=== PATIENT | male | born 1950 | race Caucasian/White ===

== ENCOUNTER 2018-07-14 07:08 | Inpatient (IN) | payer OTHER, MEDICARE ==
[~2018-07-14] VITALS: Ht 182.9 cm; Wt 124.2 kg
[2018-07-14] VITALS (11 sets, daily range): BP systolic 103–121; BP diastolic 57–88; PULSE 51–64; TEMP 97.8–98.3
[~2018-07-14 07:08] MED LIST: ASPIRIN 81M81 MG/TA2 PO; CLARITIN 1010 MG/TAB PO; COZAAR 25MG25 MG/TAB PO; GLUCOSAMINE & C1 CA1 PO; GLUCOSAMINE/MSM1 TAB PO; HCTZ 25MG TAB25 MG PO; LUTEIN 15 MG-0.1 SGL PO; NORCO 325 MG-51 TAB PO; PROAIR HFA0.09 MG/AC IH; TOPROL XL 50MG50 MG PO; VITAMIN B121000 MCG PO; ZYRTEC 10MG10 MG PO
[2018-07-14 07:46] LABS: HEMATOCRIT 46.9 % (42.0-52.0); HEMOGLOBIN 15.9 g/dl (13.5-18.0); MEAN CELL VOLUME 89 fl (80.0-100.0); MEAN CORPUSCULAR HEMOGLOBIN 30 pg (27.0-31.0); MEAN CORPUSCULAR HGB CONC 34 g/dl (33.0-37.0); MEAN PLATELET VOLUME 10.8 fl (7.4-10.4); PLATELET COUNT 211 K/mm3 (130-400); REDCELL DISTRIBUTION WIDTH-CV 12.2 % (11.5-14.5)
[2018-07-14 07:50] LABS: INR 1.1 (0.8-3.0); PROTHROMBIN TIME 12.9 SECONDS (9.7-12.8)
[2018-07-14 07:57] LABS: CALCIUM 9.4 mg/dL (8.4-10.2); CREATININE, serum 0.74 (0.66-1.25); POTASSIUM 3.9 mmol/L (3.4-5.0)
[2018-07-14] MEDS ORDERED: CLARITIN 1010 MG/TAB PO (09:22)
[2018-07-14] MEDS ORDERED: B-121000 MCG PO (09:24)
--- NOTE | 2018-07-14 09:29 | NUR ---
SEE MERGE REPORT FOR MEDICATION ADMINISTRATION AND INTRA/POST OP SEDATION ASSESSMENTS.
--- NOTE | 2018-07-14 13:15 | NUR ---
Pt arrived to room 352 at this time. He is drowsy but arouses to voice. Pt denies any pain. Site to R groin and L upper chest CDI. POC for bedrest discussed with patient who verbalizes understanding. LUE in sling. Good pulses to BUE and BLE. No needs at this time. Call light within reach.
--- NOTE | 2018-07-14 18:24 | NUR ---
Pt ambulated to the restroom for first time since bedrest is over. Ambulated well, sites CDI. Pt denies pain. Call light within reach.
--- NOTE | 2018-07-14 18:56 | NUR ---
Pt denied pain through the day. L chest and R femoral sites remained CDI. VSS. POC discussed with patient who verbalizes understanding. Call light within reach. Will continue to monitor.
--- NOTE | 2018-07-14 20:10 | NUR ---
Shift assessment complete. Pt resting in bed, awake, a&o, friendly et cooperative c cares. Pt reports "a little soreness" to L upper chest. Incision noted to L upper chest, pacemaker site, moderate ecchymosis, no drainage/edema; gauze/foam tape dressing C/D/I. LUE in sling; ice pack in place. Incision also noted to R groin, heart cath site, no drainage/edema; gauze/tegaderm dressing C/D/I. Tele in place. INT patent. Pt s further needs. Call light in reach, will continue to monitor.
[2018-07-15] VITALS (7 sets, daily range): BP systolic 104–119; BP diastolic 52–66; PULSE 59–64; TEMP 97.9–98.6
[2018-07-15 07:25] LABS: BASO % 0.3 % (0.0-2.0); EOS # 0.2 (0.0-0.7); EOS % 1.5 % (0-4.0); GRAN # 9.2 (1.4-6.5); HEMATOCRIT 42.5 % (42.0-52.0); HEMOGLOBIN 14.3 g/dl (13.5-18.0); LYMPH # 1.5 (1.2-3.4); LYMPH % 12.2 % (20.0-51.0); MEAN CELL VOLUME 90 fl (80.0-100.0); MEAN CORPUSCULAR HEMOGLOBIN 30 pg (27.0-31.0); MEAN CORPUSCULAR HGB CONC 34 g/dl (33.0-37.0); MEAN PLATELET VOLUME 11.1 fl (7.4-10.4); MONO # 1.2 (0.1-0.6); MONO % 9.7 % (1.7-9.3); PLATELET COUNT 188 K/mm3 (130-400); RED BLOOD COUNT 4.75 M/mm3 (4.20-5.60); REDCELL DISTRIBUTION WIDTH-CV 12.4 % (11.5-14.5)
[2018-07-15 07:32] LABS: INR 1.3 (0.8-3.0); PROTHROMBIN TIME 14.7 SECONDS (9.7-12.8)
[2018-07-15 07:42] LABS: CREATININE, serum 0.7 (0.66-1.25); MAGNESIUM 2.1 mg/dL (1.6-2.3)
[2018-07-15 08:06] LABS: THYROID STIMULATING HORMONE 0.624 uIU/mL (0.465-4.680)
--- NOTE | 2018-07-15 09:15 | NUR ---
Patient down for CT at this time
--- NOTE | 2018-07-15 09:35 | NUR ---
Patient back from CT escorted via wheelchair
--- NOTE | 2018-07-15 10:15 | NUR ---
Patient assessment complete. Patient sitting in bed, son at bedside. No SOB, dizziness, palpitations "not sure I would notice, I didn't notice before", stated patient. Denies pain, "just sore on left side". Pulses are strong bilaterally, no edema noted. Bowel sounds X4 present. Lung sounds clear throughout. Heart sounds normal. Left chest pacemaker site is CDI, dressing removed, sutures intact, no bleeding. Left arm in sling. Right groin site, dressing CDI. Call light within reach.
--- NOTE | 2018-07-15 10:41 | NUR ---
First visit from the catalyst operator chief. prayed with patient. No other needs right now.
--- NOTE | 2018-07-15 13:57 | NUR ---
SW student met with the patient to discuss discharge planning. The patient lives in [place] with his , Deandra. The patient reports independence with ADLs and has no DME but has a C-pap that he obtained from [facility]. The patients PCP is Dr. Jose Matute and he gets his medications from [facility]. The patient reports no difficulties obtaining his medications. The patient does have a DPOA-HC completed and a copy is in his chart. The patient plans to return home with family support upon discharge. No additional needs at this time.
--- NOTE | 2018-07-15 20:04 | NUR ---
Pt resting in bed watching TV, surgical sites CDI, shift assessments complete, left Pt call light in reach, bed in lowest position.
[2018-07-16 03:36] VITALS: BP 115/72; PULSE 65; TEMP 97.9
--- NOTE | 2018-07-16 04:42 | NUR ---
Pt slept well during the night, no C/O pain during, VS have remained stable, pacemaker surgical site remains well approximated without any drainage redness.
[2018-07-16 06:36] LABS: INR 1.3 (0.8-3.0)
[2018-07-16 06:48] LABS: CALCIUM 8.7 mg/dL (8.4-10.2); CREATININE, serum 0.79 (0.66-1.25); MAGNESIUM 2.1 mg/dL (1.6-2.3); POTASSIUM 3.8 mmol/L (3.4-5.0)
[2018-07-16 06:51] LABS: BASO % 0.4 % (0.0-2.0); EOS # 0.3 (0.0-0.7); EOS % 2.4 % (0-4.0); GRAN % 72.7 % (42.2-75.2); HEMATOCRIT 40.1 % (42.0-52.0); HEMOGLOBIN 13.5 g/dl (13.5-18.0); LYMPH # 1.4 (1.2-3.4); LYMPH % 12.9 % (20.0-51.0); MEAN CELL VOLUME 90 fl (80.0-100.0); MEAN CORPUSCULAR HEMOGLOBIN 30 pg (27.0-31.0); MEAN CORPUSCULAR HGB CONC 34 g/dl (33.0-37.0); MEAN PLATELET VOLUME 11.6 fl (7.4-10.4); MONO # 1.2 (0.1-0.6); MONO % 11.1 % (1.7-9.3); PLATELET COUNT 168 K/mm3 (130-400); RED BLOOD COUNT 4.47 M/mm3 (4.20-5.60); REDCELL DISTRIBUTION WIDTH-CV 12.5 % (11.5-14.5)
--- NOTE | 2018-07-16 07:15 | NUR ---
Report received from MELVIN Hannah. PT resting in bed with CPAP on, denies needs, will continue to monitor.
[2018-07-16 07:20] VITALS: BP 118/76; PULSE 59; TEMP 98.3
--- NOTE | 2018-07-16 08:00 | NUR ---
Assessment complete. incision L upper chest CDI.incision R groin CDI. INT L AC CDI. No c/o pain. Telemetry on.call light in hand.
[2018-07-16] MEDS ORDERED: BETAPACE 80MG80 MG PO (09:54)
[2018-07-16] MEDS ORDERED: COUMADIN 5MG5 MG/TAB PO (09:54)
[2018-07-16] MEDS ORDERED: CEPHALEXIN500 M1 PO (09:55)
[2018-07-16 10:40] VITALS: BP 115/60; PULSE 60; TEMP 98.3
--- NOTE | 2018-07-16 13:20 | NUR ---
Discharge teaching completed at this time. Discharged pt home, discharge packet reviewed including new scripts, f/u appointments. INT d/c'd, tip intact. Answered all questions. Pt escorted out by myself, left with all belongings, family to drive home, criteria met.
== END 2018-07-16 13:15 | disposition home or self-care (01) | DRG 244 ==
LOC: COL.CAR 07:08 → MEDICAL 13:18 → COL.CAR 13:20 → MEDICAL 13:21
PROVIDERS: ADMIT Internal Medicine Cardiovascular Disease
PROC: 0JH606Z Insertion of Pacemaker, Dual Chamber into Chest Subcutaneous Tissue and Fascia, Open Approach (ICD-10-PCS; principal; 2018-07-14)
PROC: 02H70JZ Insertion of Pacemaker Lead into Left Atrium, Open Approach (ICD-10-PCS; 2018-07-14)
PROC: 02H63JZ Insertion of Pacemaker Lead into Right Atrium, Percutaneous Approach (ICD-10-PCS; 2018-07-14)
PROC: 02HK3JZ Insertion of Pacemaker Lead into Right Ventricle, Percutaneous Approach (ICD-10-PCS; 2018-07-14)
PROC: B2111ZZ Fluoroscopy of Multiple Coronary Arteries using Low Osmolar Contrast (ICD-10-PCS; 2018-07-14)
PROC: B2151ZZ Fluoroscopy of Left Heart using Low Osmolar Contrast (ICD-10-PCS; 2018-07-14)
PROC: 4A023N8 Measurement of Cardiac Sampling and Pressure, Bilateral, Percutaneous Approach (ICD-10-PCS; 2018-07-14)
DX: I48.0 Paroxysmal atrial fibrillation (principal); I49.5 Sick sinus syndrome; I10 Essential (primary) hypertension; I35.0 Nonrheumatic aortic (valve) stenosis; J45.909 Unspecified asthma, uncomplicated; I44.0 Atrioventricular block, first degree; I44.7 Left bundle-branch block, unspecified
CPT/HCPCS: C1760; C1769; C1894; C1898; C1900; C2621; J0690; J1200; J1644; J2250; J3010; Q9967

== ENCOUNTER 2018-08-12 10:12 | Inpatient (IN) | payer OTHER, MEDICARE ==
[~2018-08-12] VITALS: Ht 180.3 cm; Wt 115.8 kg
[~2018-08-12 10:12] MED LIST changes: +B-121000 MCG PO; +BETAPACE 80MG80 MG PO; +CEPHALEXIN500 M1 PO; +COUMADIN 5MG5 MG/TAB PO
[2018-08-12 10:52] LABS: BASO # 0.1 (0.0-0.2); BASO % 0.6 % (0.0-2.0); EOS # 0.3 (0.0-0.7); EOS % 2.7 % (0-4.0); GRAN # 7.6 (1.4-6.5); GRAN % 77.9 % (42.2-75.2); HEMATOCRIT 47.5 % (42.0-52.0); HEMOGLOBIN 15.9 g/dl (13.5-18.0); LYMPH # 1.1 (1.2-3.4); LYMPH % 11.2 % (20.0-51.0); MEAN CELL VOLUME 89 fl (80.0-100.0); MEAN CORPUSCULAR HEMOGLOBIN 30 pg (27.0-31.0); MEAN CORPUSCULAR HGB CONC 34 g/dl (33.0-37.0); MEAN PLATELET VOLUME 10.8 fl (7.4-10.4); MONO # 0.7 (0.1-0.6); MONO % 7.4 % (1.7-9.3); PLATELET COUNT 210 K/mm3 (130-400); RED BLOOD COUNT 5.36 M/mm3 (4.20-5.60); REDCELL DISTRIBUTION WIDTH-CV 12.7 % (11.5-14.5)
[2018-08-12 11:13] LABS: ALANINE AMINOTRANSFERASE < 6 U/L (21-72); ALBUMIN 3.9 gm/dL (3.5-5.0); ALKALINE PHOSPHATASE 74 U/L (50-136); ANION GAP 12 mmol/L (7-16); AST,SGOT 29 U/L (15-37); BILIRUBIN,TOTAL 0.7 mg/dL (0.0-1.0); BLOOD UREA NITROGEN 21 mg/dL (9-20); CALCIUM 9.5 mg/dL (8.4-10.2); CARBON DIOXIDE 26 mmol/L (22-30); CHLORIDE 102 mmol/L (98-107); GLUCOSE 128 mg/dL (74-106); LIPASE 58 U/L (23-300); POTASSIUM 4.4 mmol/L (3.4-5.0); SODIUM 139 mmol/L (137-145); TOTAL PROTEIN 7.4 gm/dL (6.4-8.2)
[2018-08-12 11:23] LABS: TROPONIN-I < 0.012 ng/mL (0.000-0.035)
--- NOTE | 2018-08-12 15:30 | NUR ---
Patient up to room with at bedside. Patient ambulating on own. Assessment complete. Expiratory wheezes throughout, denies SOB. Denies current chest pain, palpitations, sweatiness. VSS, labs ok. Radial and pedal pulses strong bilaterally. Patient here a month ago for pacemaker placement. Site is [facility]. Patient on room air. IV in LAC, fluids running, no complications. Skin intact. No other needs at this time. Call light within reach.
[2018-08-12 16:16] VITALS: BP 111/66; PULSE 54; TEMP 97.9
[2018-08-12 16:18] LABS: INR 3.2 (0.8-3.0); PROTHROMBIN TIME 35.9 SECONDS (9.7-12.8)
--- NOTE | 2018-08-12 19:09 | NUR ---
Report given to MELVIN Cui.
[2018-08-12 19:44] VITALS: BP 120/61; PULSE 58; TEMP 98.7
--- NOTE | 2018-08-12 23:00 | NUR ---
PT HAD ASKED THIS NURSE IF HE WAS STILL GETTING THE TORADOL FOR CHEST DISCOMFORT THAT HE HAD GOTTEN IN THE ED. THIS NURSE TOLD HIM IT LOOKED LIKE A ONE TIME DOSE. THIS NURSE INFOMRED HIM THAT IT WAS NO LONGER IN HIS MED LIST BUT I COULD CALL AND ASK FOR MED ORDER IF HE WAS HAVING MORE PAIN. PT STATED THAT HIS PAIN HAD BEEN STILL REMAINING FROM EARLIER THAT HE MAINLY JUST WONDERING IF IT WAS A CONTINUED MED. THIS NURSE TOLD PT TO RING IF HIS PAIN GETS WORSE AND I CAN GET AN ORDER IF HE NEEDS SOMETHING MORE FOR PAIN. PT STATED THAT HE WOULD
[2018-08-12 23:53] VITALS: BP 111/72; PULSE 70; TEMP 98.3
[2018-08-13] VITALS (7 sets, daily range): BP systolic 94–129; BP diastolic 50–79; PULSE 58–88; TEMP 98–98.7
--- NOTE | 2018-08-13 | NUR ---
PT STATED HE WAS HAVING SOME ANXIOUSNESS THIS NOC ABOUT UP COMING PROCEDURE.
--- NOTE | 2018-08-13 06:04 | NUR ---
PT STATED THAT HE WAS ABLE TO GET SOME SLEEP AT ABOUT 3 THIS MORNING. STATED THAT HE HAD THAT CHEST IRRITATION FOR AWHILE IN THE NIGHT, IT FINALLY SUBSIDED AND HE WAS ABLE TO GET SOME REST.
[2018-08-13 07:18] LABS: BASO % 0.2 % (0.0-2.0); EOS % 0.1 % (0-4.0); GRAN # 11.4 (1.4-6.5); GRAN % 82.2 % (42.2-75.2); HEMATOCRIT 43.2 % (42.0-52.0); HEMOGLOBIN 14.3 g/dl (13.5-18.0); LYMPH # 1.1 (1.2-3.4); LYMPH % 7.9 % (20.0-51.0); MEAN CELL VOLUME 91 fl (80.0-100.0); MEAN CORPUSCULAR HEMOGLOBIN 30 pg (27.0-31.0); MEAN CORPUSCULAR HGB CONC 33 g/dl (33.0-37.0); MEAN PLATELET VOLUME 11.3 fl (7.4-10.4); MONO # 1.3 (0.1-0.6); MONO % 9.2 % (1.7-9.3); PLATELET COUNT 204 K/mm3 (130-400); RED BLOOD COUNT 4.76 M/mm3 (4.20-5.60); REDCELL DISTRIBUTION WIDTH-CV 12.9 % (11.5-14.5)
[2018-08-13 07:26] LABS: INR 2.9 (0.8-3.0); PROTHROMBIN TIME 32.9 SECONDS (9.7-12.8)
[2018-08-13 07:31] LABS: CREATININE, serum 0.8 (0.66-1.25); POTASSIUM 4.3 mmol/L (3.4-5.0)
--- NOTE | 2018-08-13 11:01 | NUR ---
Assessment completed, alert/oriented, vital sigs stable, reports mild tenderness/ sore in chest, heart RRR/ SR on tele, lungs CTA/ no resp.difficulty noted, patient has been NPO, he is scheduled for Atrial pacemaker lead revision later today, consent signed, patient denies othr needs at this time
--- NOTE | 2018-08-13 16:55 | NUR ---
SW attempted to meet with the patient. The patient was down in a procedure. SW to follow up with the patient tomorrow, 08/14.
--- NOTE | 2018-08-13 17:00 | NUR ---
ALL MEDICATIONS GIVEN VORB WITH MD. SEE MERGE FOR ALL MEDICATION ADMIN TIMES. SEE MERGE FOR ALL RASS ASSESSMENTS DURING AND POST PROCEDURE. ANTIBIOTICS GIVEN PRIOR TO PROCEDURE, REFER TO MAR.
--- NOTE | 2018-08-13 19:02 | NUR ---
Patient arrived back to the floor from slab polisher at this time 1814, he is alert/oriented but still drowsy from sedation, vital sign stable/ BP soft and will monitor closely, incision site dressing C/D/I, dnies pain, AV paced on tele, fmaily present, denies othe needs
[2018-08-13] MEDS ORDERED: COUMADIN 22.5 MG/TAB PO ×2 (21:10→21:12)
[2018-08-13] MEDS ORDERED: COUMADIN 5MG5 MG/TAB PO (21:21)
[2018-08-14 00:10] VITALS: BP 101/65; PULSE 70; TEMP 98.3
[2018-08-14 04:30] VITALS: BP 100/67; PULSE 71; TEMP 97.9
--- NOTE | 2018-08-14 06:09 | NUR ---
PT HAD UNEVENTFUL NOC. PT HAD SOFT B/PS IN EVENING AND WAS STILL DROWSY FROM CONSCIOUS SEDATION, VITALS LOOKED BETTER AND PT MORE ALERT LATER ON. PT HAD NO C/O PAIN OVERNIGHT. WORE LT ARM SLING THROUGHOUT NOC WITHOUT ISSUE. PLEASANT AND COOPERATIVE WITH CARES. TELE BOX WAS CHANGED OUT THIS HS DUE TO INTERERENCE AND NOISY SIGNAL, TELE BOX THAT WAS PUT ON AFTERWARD HAD NO MORE ISSUES.
[2018-08-14 06:29] LABS: HEMATOCRIT 38.7 % (42.0-52.0); HEMOGLOBIN 12.8 g/dl (13.5-18.0); MEAN CELL VOLUME 90 fl (80.0-100.0); MEAN CORPUSCULAR HEMOGLOBIN 30 pg (27.0-31.0); MEAN CORPUSCULAR HGB CONC 33 g/dl (33.0-37.0); MEAN PLATELET VOLUME 11.2 fl (7.4-10.4); PLATELET COUNT 163 K/mm3 (130-400); RED BLOOD COUNT 4.28 M/mm3 (4.20-5.60)
[2018-08-14 06:33] LABS: INR 2.6 (0.8-3.0); PROTHROMBIN TIME 29.6 SECONDS (9.7-12.8)
[2018-08-14 06:47] LABS: ALBUMIN 3.2 gm/dL (3.5-5.0); CALCIUM 8.7 mg/dL (8.4-10.2); CREATININE, serum 0.76 (0.66-1.25); POTASSIUM 3.8 mmol/L (3.4-5.0); TOTAL PROTEIN 6.4 gm/dL (6.4-8.2)
[2018-08-14 07:28] LABS: EOSINOPHIL 1 % (0-4); LYMPHOCYTE 11 % (20.0-51.0); NEUTROPHILS 74 % (42.0-75.2); PLATELET ESTIMATE NORMAL (NORMAL)
[2018-08-14 08:12] VITALS: BP 105/59; PULSE 69; TEMP 98.4
[2018-08-14 08:16] VITALS: BP 134/74; PULSE 83; TEMP 97.8
--- NOTE | 2018-08-14 08:25 | NUR ---
Patient sitting in bed upon entry. Assessment complete. Denies SOB, dizziness, chest pain, palpitations. Left chest site from lead revision is CDI, no redness, swelling, bleeding. Right lung yarbrough diminished. Left lung yarbrough clear. Heart RRR. Patient ambulatory, cooperative with cares. No other needs at this time. Call light within reach. Breakfast delivered.
--- NOTE | 2018-08-14 09:49 | NUR ---
SW met with the patient to discuss discharge plan and to complete the 30 day re-admit interview. The patient reports that everything was going very well and then he started feeling different and went to his mirror maker and they sent him to the emergency department. The patient lives in [place] with his , Deandra. He reports independence with ADLs and does not use any assistive devices. He does have a CPAP machine from [employer]. The patient's PCP is Dr. Dong Lockhart and he receives his medications from [facility]. He reports no difficulties obtaining his meds. The patient's advanced directives are in EMR. The patient plans to return home with his upon discharge. No additional needs at this time.
--- NOTE | 2018-08-14 11:37 | NUR ---
First visit from the occupational rehabilitation aide. prayed with patient. No other needs right now.
[2018-08-14 11:56] VITALS: BP 111/57; PULSE 69; TEMP 97.9
[2018-08-14] MEDS ORDERED: BETAPACE 120MG120 MG PO (11:59)
[2018-08-14] MEDS ORDERED: TYLENOL 325MG325 MG PO (12:01)
[2018-08-14] MEDS ORDERED: CEPHALEXIN500 M1 PO (12:34)
[2018-08-14 16:20] VITALS: BP 110/63; PULSE 74; TEMP 98.7
--- NOTE | 2018-08-14 19:22 | NUR ---
Patient had uneventful day. Discharge planning for early this afternoon. Patient had to wait to take last dose of Ancef at 1745. Patient has been cooperative with cares. Discharge instructions reviewed. All questions answered. Patient verbalized understanding. Patient escorted out with .
== END 2018-08-14 18:30 | disposition home or self-care (01) | DRG 261 ==
LOC: COL.ER 10:12 → MEDICAL 15:08
PROVIDERS: Emergency Medicine; Physician Assistant; ADMIT Family Medicine
PROC: 02WA0MZ Revision of Cardiac Lead in Heart, Open Approach (ICD-10-PCS; principal; 2018-08-13)
PROC: 5A2204Z Restoration of Cardiac Rhythm, Single (ICD-10-PCS; 2018-08-13)
DX: T82.198A Other mechanical complication of other cardiac electronic device, initial encounter (principal); I31.9 Disease of pericardium, unspecified; I48.0 Paroxysmal atrial fibrillation; I49.5 Sick sinus syndrome; I10 Essential (primary) hypertension; I35.0 Nonrheumatic aortic (valve) stenosis; J45.909 Unspecified asthma, uncomplicated; G47.33 Obstructive sleep apnea (adult) (pediatric); I71.4 Abdominal aortic aneurysm, without rupture; Y92.9 Unspecified place or not applicable; Y83.9 Surgical procedure, unspecified as the cause of abnormal reaction of the patient, or of later complication, without mention of misadventure at the time of the procedure; M17.10 Unilateral primary osteoarthritis, unspecified knee; Z95.0 Presence of cardiac pacemaker
CPT/HCPCS: OP; 99222-AI; 99239; G0378; J0690; J1885; J2250; J3010; J7030; Q9967

== ENCOUNTER 2018-12-19 14:37 | Outpatient (RCR) | payer MEDICARE, BC ==
[~2018-12-19 14:37] MED LIST changes: +BETAPACE 120MG120 MG PO; +COUMADIN 22.5 MG/TAB PO; +TYLENOL 325MG325 MG PO
== END 2018-12-23 | disposition home or self-care (01) ==
LOC: COL.CR
DX: Z48.812 Encounter for surgical aftercare following surgery on the circulatory system (principal); Z95.2 Presence of prosthetic heart valve; I10 Essential (primary) hypertension; I48.91 Unspecified atrial fibrillation; I71.9 Aortic aneurysm of unspecified site, without rupture; I35.0 Nonrheumatic aortic (valve) stenosis

== ENCOUNTER 2021-12-12 06:55 | Day surgery (SDC) | payer MEDICARE, BC ==
[~2021-12-12] VITALS: Ht 182.9 cm; Wt 118.5 kg
[~2021-12-12 06:55] MED LIST changes: -B-121000 MCG PO; +VITAMIN B12 681 TAB PO
[2021-12-12 07:14] VITALS: BP 161/97; PULSE 88; TEMP 97
[2021-12-12] MEDS ORDERED: CARDIZEM CD 18180 MG PO (07:19)
[2021-12-12] MEDS ORDERED: AVAPRO75 MG PO (07:20)
[2021-12-12] MEDS ORDERED: VITAMIN C500 MG PO (07:20)
[2021-12-12 09:00] VITALS: BP 132/85; PULSE 71; TEMP 97.7
--- NOTE | 2021-12-12 09:07 | NUR ---
0900 - PT arrives from procedure drowsy but oriented; abmulated from cart to chair 2:1 w/ a mildly unsteady gait. Monitors applied and vitals obtained; warm blankets provided and non-slip socks remain on. Verbal room report obtained from Lona CHARLES; visitor remains present and call childs is within reach. Snack and drink provided; PT denies pain/nasuea.
[2021-12-12 09:15] VITALS: BP 157/84; PULSE 71
--- NOTE | 2021-12-12 09:20 | NUR ---
0915 - Vitals obtained; PT has finished snack and drink, continues to deny nausea/pain. Call childs remains within reach, visitor remains present. Awaiting
[2021-12-12 09:30] VITALS: BP 149/80; PULSE 70
--- NOTE | 2021-12-12 09:45 | NUR ---
0930 - VSS. Call childs remains within reach. is speaking w/ PT 0945 - IV discontinued. Catheter tip intact and pressure bandage applied; no redness or swelling noted. DC instructions and educational material reviewed w/ PT who verbalized understanding and signed the related paperwork. All questions answered to PT satisfaction. PT refused RN assistance changing into personal clothes; call childs remains within reach and visitor remains present.
--- NOTE | 2021-12-12 10:00 | NUR ---
0950 - PT was dismissed from endo via wheelchair by Henrietta CHARLES. PT has DC packet and personal belongings and was transferred into the care of Deandra, who is driving private car.
== END 2021-12-12 10:00 | disposition home or self-care (01) ==
LOC: SDCO 06:55
DX: Z12.11 Encounter for screening for malignant neoplasm of colon (principal); D12.5 Benign neoplasm of sigmoid colon; D12.3 Benign neoplasm of transverse colon; K57.30 Diverticulosis of large intestine without perforation or abscess without bleeding; K64.0 First degree hemorrhoids; Z86.010 Personal history of colon polyps; G47.33 Obstructive sleep apnea (adult) (pediatric); E11.9 Type 2 diabetes mellitus without complications
CPT/HCPCS: J2704; J7120